=== PATIENT | female | born 1950 | race Caucasian/White ===

== ENCOUNTER 2016-10-05 15:28 | Emergency (ER) | payer OTHER ==
[~2016-10-05] VITALS: Wt 83.9 kg
[~2016-10-05 15:28] MED LIST: LISINOPRIL
[2016-10-05] MEDS ORDERED: LANSOPRAZOLE30 MG PO (15:46)
[2016-10-05] MEDS ORDERED: LISINOPRIL10 M1 PO (15:46)
[2016-10-05] MEDS ORDERED: PAROXETINE HCL10 MG PO (15:46)
[2016-10-05] MEDS ORDERED: ASPIRIN CHEWABL81 MG PO (15:47)
[2016-10-05] MEDS ORDERED: TRAMADOL HCL50 MG PO (17:09)
== END 2016-10-05 18:04 | disposition home or self-care (01) ==
LOC: ED 15:28
DX: S61.211A Laceration without foreign body of left index finger without damage to nail, initial encounter (principal); Z79.899 Other long term (current) drug therapy; Z79.82 Long term (current) use of aspirin; W45.8XXA Other foreign body or object entering through skin, initial encounter; Y93.89 Activity, other specified; Y92.89 Other specified places as the place of occurrence of the external cause; Y99.8 Other external cause status

== ENCOUNTER → 2017-07-04 | Day surgery (SDC) | payer OTHER ==
[~2017-07-04] VITALS: Ht 172.7 cm; Wt 82.6 kg
[~2017-07-04] MED LIST changes: +ASPIRIN CHEWABL81 MG PO; +DICYCLOMINE HYD10 MG PO; +LANSOPRAZOLE30 MG PO; +LISINOPRIL10 M1 PO; +PAROXETINE HCL10 MG PO; +TRAMADOL HCL50 MG PO; +VITAMIN B 12 PO; +VITAMIN D-32000 UNIT PO
--- NOTE | ~2017-07-04 | O ---
[place], [place] OPERATIVE NOTE NAME: DEEPTI DIXON UNIT #: [id number] ROOM: DOCTOR: KAYLA CHENG,PAN BIRTHDATE: [birth year] DOS: 07/04/2017 GASTROENDOSCOPIC REPORT INDICATIONS: The patient has presented with alteration in bowel movement, diarrhea dominance, left lower quadrant pain intermittent for past 7 years. PROCEDURE: Today's procedure part of investigation is colonoscopy. PREMEDICATION: Versed and Diprivan. SCOPE: Olympus folding colonoscope 10L video. REPORT: After putting the patient in left lateral position and application of lubricant to the scope, the scope was introduced. Thereafter, under direct visualization, advanced through the length of colon without difficulty. Diverticulosis was noted. Sessile polypoid lesion in sigmoid colon with piecemeal polypectomy removed. Random biopsies of the colon were obtained ruling out collagenous colitis. Base of the cecum explored, appendiceal orifice identified, ileocecal valve was defined. Air was suctioned out. Otherwise, the patient was gradually extubated, tolerated the procedure well. IMPRESSION: Diverticulosis, sessile colonic polyp, sigmoid colon, status post piecemeal polypectomy and status post random biopsy of the colon, ruling out collagenous colitis. PLAN AND DISCUSSION: I believe that this patient has an element of irritable bowel syndrome as well. We are going to start her on dicyclomine 10 mg 1 daily to see if her symptomatology is improved and irregularity of the bowel to see if it is going to correct. High fiber diet has been recommended. Follow up routinely with you in office, p.r.n. visit with us in [facility]. Thank you very much indeed for your kind referral. [place], [place] OPERATIVE NOTE NAME: DEEPTI DIXON UNIT #: [id number] ROOM: DOCTOR: KAYLA CHENG,PAN BIRTHDATE: [birth year] PAN GARZA MD CM:OPRECORD:OPERATIVE NOTE [id number] DELIAKIARRA RAMIREZ MD 07/04/17 0936 interface
--- NOTE | ~2017-07-04 | O ---
[place], [place] OPERATIVE NOTE NAME: DEEPTI DIXON UNIT #: [id number] ROOM: DOCTOR: PAN GARZA MD BIRTHDATE: [birth year] DOS: 07/04/2017 INDICATIONS: A 67-year-old patient who has presented with chief complaint of diarrhea and alteration to constipation, left lower quadrant pain, dyspepsia, undergoing investigation. ALLERGIES: To no known medication. FAMILY HISTORY: Noncontributory. PAST SURGICAL HISTORY: Hysterectomy, appendectomy, right knee. PAST MEDICAL HISTORY: GERD, hypertension, anxiety, cerebrovascular accident. SOCIAL HISTORY: Nonsmoker, nonalcohol consumer. The patient has been on Prevacid for several years. PROCEDURE: Today's procedure part of investigation is panendoscopy. PREMEDICATION: Versed and Diprivan. SCOPE: Olympus forward-viewing gastroscope Q10 video. REPORT: After putting the patient in left lateral position and application of lubricant to the scope, the scope was introduced. Thereafter, under direct visualization, advanced through the length of esophagus without difficulty. Hiatal hernia, which is small, was noticed. Gastric pouch was appreciated. Gastritis seen. Antral biopsy obtained. Duodenal bulb, second and third part within normal limits. Scope was gradually withdrawn along the lesser curvature. The patient was extubated, tolerated the procedure well. IMPRESSION: 1. Mild gastritis. 2. Hiatal hernia, small. PLAN AND DISCUSSION: Continuation with Prevacid. Awaiting H. pylori results. [place], [place] OPERATIVE NOTE NAME: DEEPTI DIXON Kristine UNIT #: [id number] ROOM: DOCTOR: PAN GARZA MD BIRTHDATE: [birth year] PAN GARZA MD CM:OPRECORD:OPERATIVE NOTE PAN GARZA MD 07/04/17 0933 interface
[2017-07-04 07:30] VITALS: BP 165/95
[2017-07-04 09:08] VITALS: BP 148/90
[2017-07-04 09:23] VITALS: BP 136/78; BP 143/83
[2017-07-04 09:38] VITALS: BP 136/87
== END | disposition home or self-care (01) ==
LOC: SDC 06-29 13:15
DX: K63.5 Polyp of colon (principal); K29.50 Unspecified chronic gastritis without bleeding; Z90.710 Acquired absence of both cervix and uterus; Z90.49 Acquired absence of other specified parts of digestive tract; K21.9 Gastro-esophageal reflux disease without esophagitis; I10 Essential (primary) hypertension; F41.9 Anxiety disorder, unspecified; Z86.73 Personal history of transient ischemic attack (TIA), and cerebral infarction without residual deficits; K44.9 Diaphragmatic hernia without obstruction or gangrene; K57.30 Diverticulosis of large intestine without perforation or abscess without bleeding; F32.9 Major depressive disorder, single episode, unspecified; Z79.899 Other long term (current) drug therapy; Z82.49 Family history of ischemic heart disease and other diseases of the circulatory system

== ENCOUNTER → 2020-01-22 | Outpatient (CLI) | payer OTHER | END | disposition home or self-care (01) | LOC: MAMMO 01-08 11:00 | PROVIDERS: ATTEND Family Medicine | DX: Z12.31 Encounter for screening mammogram for malignant neoplasm of breast (principal) ==

== ENCOUNTER → 2021-04-19 | Outpatient (CLI) | payer OTHER | END | disposition home or self-care (01) | LOC: RAD 18:09 | PROVIDERS: ATTEND Family Medicine | DX: M16.11 Unilateral primary osteoarthritis, right hip (principal); M25.751 Osteophyte, right hip ==